=== PATIENT | female | born 2000 | race Caucasian/White ===

== ENCOUNTER 2021-02-21 11:55 | Emergency (ER) | payer MEDICAID ==
[~2021-02-21] VITALS: Ht 160 cm; Wt 50.0 kg
[2021-02-21] MEDS ORDERED: MORPHINE SULFATE 4 MG/ML CPJ (NOT FOR IM USE) IV ONE ×2 (12:15→14:00)
[2021-02-21] MEDS ORDERED: SODIUM CHLORIDE 0.9% 1,000 ML IV ONE (12:15)
[2021-02-21] MEDS ORDERED: ONDANSETRON HCL 4MG/2ML INJ IV ONE ×2 (12:15→14:00)
[2021-02-21] MEDS ORDERED: KETOROLAC 15MG/ML VIAL IV ONE ×2 (12:15→15:30)
[2021-02-21 12:31] LABS: BASOPHILS % 0.6 % (0.0-2.0); EOSINOPHILS % 1.2 % (0.0-5.0); HEMATOCRIT. 36.5 % (36.0-48.0); HEMOGLOBIN. 12.2 g/dL (12.0-16.0); LYMPHOCYTES % 31.9 % (20.0-50.0); MEAN CORPUSCULAR HEMOGLOBIN 25.7 pg (28.0-32.0); MEAN CORPUSCULAR VOLUME 76.9 fL (81.0-99.0); MEAN PLATELET VOLUME 9.6 fl (7.4-10.4); MONOCYTES % 5.9 % (2.0-8.0); NEUTROPHILS % 60.4 % (40.0-76.0); PLATELET 198 x1000/uL (130-400); RED BLOOD CELL COUNT 4.75 mill/uL (4.2-5.4); RED CELL DISTRIBUTION WIDTH 15.2 % (11.6-14.6)
[2021-02-21 12:40] LABS: CHLORIDE 109 mEq/L (98-107)
[2021-02-21 12:48] LABS: HCG SCREEN NEGATIVE
[2021-02-21 16:00] VITALS: BP 87/53
[2021-02-21] MEDS ORDERED: OXYC-662 MT (17:10)
[2021-02-21] MEDS ORDERED: ACET650T37 MT (17:10)
[2021-02-21] MEDS ORDERED: ONDA4TAB11 PO (17:10)
[2021-02-21] MEDS ORDERED: IBUP-2029 MT (17:10)
== END 2021-02-21 17:22 | disposition home or self-care (01) ==
LOC: ER 11:55
DX: R10.11 Right upper quadrant pain (principal); K80.20 Calculus of gallbladder without cholecystitis without obstruction; K80.50 Calculus of bile duct without cholangitis or cholecystitis without obstruction
CPT/HCPCS: 36415; 76705; 80053; 83690; 84703; 85025; 93005; 96361; 96374; 96375; 99285; J1885; J2270; J2405; J7030